=== PATIENT | female | born 1950 | race Caucasian/White ===

== ENCOUNTER → 2020-08-09 | Outpatient (CLI) | payer MEDICARE, OTHER ==
[~2020-08-09] MED LIST: ADVAIR 100-501 EACH INH; ALBUTEROL2.5 MG/3 M INH; ALTACE10 MG PO; ASPIRIN EC81 MG PO; BENADRYL 25MG C25 MG PO; BUMETANIDE1 MG PO; BUMEX 1MG TABLET1 MG PO; CEFPODOXIME PR200 MG PO; CEFUROXIME500 MG PO; COREG3.125 MG PO; COREG6.25 MG PO; CRESTOR10 MG PO; DEX4 GLUCOSE4 GM PO; DILT-XR180 MG PO; DILTIAZEM 24HR120 M1 PO; DOXYCYCLINE HY100 MG PO; DRISDOL50000 UNIT PO; ECOTRIN81 MG PO; ELAVIL 25 MG TA25 MG PO; FERROUS GLUCON324 M1 PO; FERROUS SULFAT325 M2 PO; FOLIC ACID 1 MG1 MG PO; FOSAMAX70 MG PO; GLUCOPHAGE 500500 MG PO; GLUCOTROL XL2.5 MG PO; INCRUSE ELLI62.5 MCG INH; IPRAT-ALBUT 0.5-3 ML INH; IPRAT-ALBUT 0.5-3 ML NEB; IRON325 M1 PO; LASIX20 MG PO; LASIX40 MG PO; LEVAQUIN500 MG PO; MEDROL4 MG PO; MUCINEX600 MG PO; NEURONTIN300 MG PO; NORCO 10-325 T1 EACH PO; NORVASC10 MG PO; OMEPRAZOLE20 MG PO; PLAVIX 75 MG TA75 MG PO; PLETAL 100 MG100 MG PO; PREDNISONE20 MG PO; PROTONIX 40 MG40 M1 PO; TYLENOL W/CODEIN1 E1 PO; VENTOLIN HFA 66.7 GM INH; VITAMIN B-1100 M1 PO; VITAMIN B-650 MG PO; ZANAFLEX 4 MG TA4 MG PO
[2020-08-10 11:12] LABS: CREATININE, URINE 67.9 mg/dL (Not Estab.)
== END ==
LOC: US 08-01 11:00
PROVIDERS: Internal Medicine Nephrology
DX: N18.9 Chronic kidney disease, unspecified (principal)
CPT/HCPCS: 36415; 80053; 81001; 82043; 82570; 84156

== ENCOUNTER 2021-02-10 04:36 | Inpatient (IN) | payer MEDICARE, OTHER ==
[~2021-02-10] VITALS: Ht 160 cm; Wt 47.5 kg
[~2021-02-10 04:36] MED LIST changes: -ASPIRIN EC81 MG PO; -DEX4 GLUCOSE4 GM PO; -DILTIAZEM 24HR120 M1 PO; -DOXYCYCLINE HY100 MG PO; -FERROUS GLUCON324 M1 PO; -IPRAT-ALBUT 0.5-3 ML INH; -PREDNISONE20 MG PO; -PROTONIX 40 MG40 M1 PO
[2021-02-10 04:51] LABS: HEMOGLOBIN 7.5 gm/dl (12.3-15.3); RED BLOOD COUNT 3.5 M/UL (4.00-5.10); WHITE BLOOD COUNT 11.2 K/UL (4.5-11.0)
[2021-02-10 05:59] LABS: BUN/CREATININE RATIO 18 (0-10)
[2021-02-10] MEDS ORDERED: LASIX40 MG PO (12:53)
[2021-02-10] MEDS ORDERED: FOLIC ACID 1 MG1 MG PO (13:14)
[2021-02-10] MEDS ORDERED: DILTIAZEM 24HR120 M1 PO (13:48)
[2021-02-10 17:25] LABS: HEMOGLOBIN 7.4 gm/dl (12.3-15.3)
[2021-02-11 10:46] LABS: HEMOGLOBIN 8.4 gm/dl (12.3-15.3); RED BLOOD COUNT 3.68 M/UL (4.00-5.10); WHITE BLOOD COUNT 11.5 K/UL (4.5-11.0)
[2021-02-11 11:05] LABS: BUN/CREATININE RATIO 19 (0-10)
[2021-02-11 15:59] LABS: HEMOGLOBIN 8.7 gm/dl (12.3-15.3)
[2021-02-11] MEDS ORDERED: ASPIRIN EC81 MG PO (16:53)
[2021-02-11] MEDS ORDERED: PROTONIX 40 MG40 M1 PO (16:58)
[2021-02-11] MEDS ORDERED: DOXYCYCLINE HY100 MG PO (16:58)
[2021-02-11] MEDS ORDERED: IPRAT-ALBUT 0.5-3 ML INH (16:58)
[2021-02-11] MEDS ORDERED: PREDNISONE20 MG PO (16:58)
[2021-02-11] MEDS ORDERED: FERROUS GLUCON324 M1 PO (16:58)
[2021-02-11] MEDS ORDERED: DEX4 GLUCOSE4 GM PO (17:21)
== END 2021-02-11 18:13 | disposition home or self-care (01) | DRG 189 ==
LOC: ER1 04:36 → PROG CARE 06:46 → CDU 06:46 → PROG CARE 20:30
PROVIDERS: Internal Medicine; Physician Assistant; ADMIT Internal Medicine
PROC: 5A09357 Assistance with Respiratory Ventilation, Less than 24 Consecutive Hours, Continuous Positive Airway Pressure (ICD-10-PCS; principal; 2021-02-10)
DX: J96.21 Acute and chronic respiratory failure with hypoxia (principal); E43 Unspecified severe protein-calorie malnutrition; J44.1 Chronic obstructive pulmonary disease with (acute) exacerbation; Z20.822 Contact with and (suspected) exposure to COVID-19; Z66 Do not resuscitate; E87.1 Hypo-osmolality and hyponatremia; I50.42 Chronic combined systolic (congestive) and diastolic (congestive) heart failure; Z68.1 Body mass index [BMI] 19.9 or less, adult; J96.22 Acute and chronic respiratory failure with hypercapnia; J20.9 Acute bronchitis, unspecified; F17.200 Nicotine dependence, unspecified, uncomplicated; D50.9 Iron deficiency anemia, unspecified; E78.5 Hyperlipidemia, unspecified; E11.40 Type 2 diabetes mellitus with diabetic neuropathy, unspecified; I25.10 Atherosclerotic heart disease of native coronary artery without angina pectoris; M06.9 Rheumatoid arthritis, unspecified; I73.9 Peripheral vascular disease, unspecified; I11.0 Hypertensive heart disease with heart failure; D64.89 Other specified anemias; Z96.661 Presence of right artificial ankle joint; Z95.1 Presence of aortocoronary bypass graft; Z71.3 Dietary counseling and surveillance; Z91.14 Patient's other noncompliance with medication regimen; Z88.0 Allergy status to penicillin; Z88.8 Allergy status to other drugs, medicaments and biological substances
CPT/HCPCS: 0240U; 36415; 36430; 36600; 71045; 71046; 80048; 80053; 81001; 82550; 82553; 82803; 82962; 83540; 83550; 83605; 83874; 83880; 84484; 85014; 85018; 85025; 85027; 86140; 86850; 86900; 86901; 86920; 87040; 87077; 87086; 87186; 93005; 94640; 94644; 94660; 94664; 94760; 96374; 99285; C9113; J1100; J2920; J7030; P9016

== ENCOUNTER 2021-08-11 10:49 | Inpatient (IN) | payer MEDICARE, OTHER ==
[~2021-08-11] VITALS: Ht 165.1 cm; Wt 47.6 kg
[~2021-08-11 10:49] MED LIST changes: +ASPIRIN EC81 MG PO; +DEX4 GLUCOSE4 GM PO; +DILTIAZEM 24HR120 M1 PO; +DOXYCYCLINE HY100 MG PO; +FERROUS GLUCON324 M1 PO; +IPRAT-ALBUT 0.5-3 ML INH; +PREDNISONE20 MG PO; +PROTONIX 40 MG40 M1 PO
[2021-08-11 11:34] LABS: HEMOGLOBIN 7.5 gm/dl (12.3-15.3); RED BLOOD COUNT 2.96 M/UL (4.00-5.10); WHITE BLOOD COUNT 7.9 K/UL (4.5-11.0)
[2021-08-11] MEDS ORDERED: PROTONIX 40 MG40 M1 PO (14:46)
[2021-08-11] MEDS ORDERED: PREDNISONE10 MG PO (14:47)
[2021-08-11] MEDS ORDERED: CETIRIZINE HCL10 MG PO (14:49)
[2021-08-11] MEDS ORDERED: AZITHROMYCIN250 MG PO (14:49)
[2021-08-11] MEDS ORDERED: CYANOCOBAL1000 MCG/1 INJ (14:50)
[2021-08-11] MEDS ORDERED: SYMBICORT 80-10.2 GM INH (14:51)
[2021-08-12 04:21] LABS: HEMOGLOBIN 7.2 gm/dl (12.3-15.3); RED BLOOD COUNT 2.8 M/UL (4.00-5.10)
[2021-08-12 04:23] LABS: WHITE BLOOD COUNT 5.2 K/UL (4.5-11.0)
[2021-08-12 08:09] LABS: HEMOGLOBIN 7.1 gm/dl (12.3-15.3)
[2021-08-12 16:00] LABS: HEMOGLOBIN 8.6 gm/dl (12.3-15.3)
[2021-08-13 04:25] LABS: HEMOGLOBIN 7.7 gm/dl (12.3-15.3)
[2021-08-13 04:28] LABS: WHITE BLOOD COUNT 3.7 K/UL (4.5-11.0)
--- NOTE | 2021-08-13 10:42 | NUR ---
PATIENT IS REFUSING TO WEAR THE BIPAP. DR. VIEIRA AWARE.
[2021-08-14 05:13] LABS: HEMOGLOBIN 8.2 gm/dl (12.3-15.3)
[2021-08-14 05:16] LABS: RED BLOOD COUNT 3.33 M/UL (4.00-5.10); WHITE BLOOD COUNT 6.7 K/UL (4.5-11.0)
--- NOTE | 2021-08-14 14:57 | NUR ---
I HAVE CONTINUOUSLY ADVISED THE PATIENT TO WEAR HER BIPAP AND EDUCATED ON THE IMPORTANCE OF WEARING THE BIPAP AND SHE STILL REFUSES TO WEAR IT.
[2021-08-15 06:25] LABS: HEMOGLOBIN 8.3 gm/dl (12.3-15.3); RED BLOOD COUNT 3.17 M/UL (4.00-5.10)
[2021-08-15 06:28] LABS: WHITE BLOOD COUNT 9.5 K/UL (4.5-11.0)
[2021-08-15 18:08] LABS: ORGANISM ID Not indicated. (.); SPECIMEN SOURCE Urine (.); STREPTOCOCCUS PNEUMONIAE AG Positive (Negative)
[2021-08-16 07:43] LABS: HEMOGLOBIN 7.7 gm/dl (12.3-15.3); RED BLOOD COUNT 3.09 M/UL (4.00-5.10); WHITE BLOOD COUNT 10.2 K/UL (4.5-11.0)
--- NOTE | 2021-08-17 00:57 | NUR ---
AT APPROXIMATELY 2230 ON 08/16/20, WHILE TECH WAS OBTAINING 2200 VS, PT WAS UPSET THAT IT WAS NOT TIME FOR A BREATHING TREATMENT AND PT REFUSED TO ALLOW STAFF TO CHECK AND CHANGE BRIEF. WILL ATTEMPT AGAIN AT LATER POINT IN SHIFT WHEN PT IS MORE CALM. WCTM
[2021-08-17 06:59] LABS: HEMOGLOBIN 7.4 gm/dl (12.3-15.3); RED BLOOD COUNT 2.98 M/UL (4.00-5.10); WHITE BLOOD COUNT 8.7 K/UL (4.5-11.0)
[2021-08-18 09:03] LABS: HEMOGLOBIN 7.3 gm/dl (12.3-15.3); RED BLOOD COUNT 2.89 M/UL (4.00-5.10); WHITE BLOOD COUNT 9.4 K/UL (4.5-11.0)
[2021-08-18] MEDS ORDERED: LOKELMA5 GM PO (15:17)
[2021-08-18] MEDS ORDERED: FERROUS GLUCON324 M1 PO (15:17)
[2021-08-18] MEDS ORDERED: CEFUROXIME500 MG PO (15:17)
[2021-08-18] MEDS ORDERED: MEDROL DOSEPAK 24 MG PO (15:17)
[2021-08-18] MEDS ORDERED: DILTIAZEM 24HR240 M1 PO (15:17)
[2021-08-18] MEDS ORDERED: LOPRESSOR 50 MG50 MG PO (15:17)
== END 2021-08-18 17:52 | disposition home or self-care (01) | DRG 193 ==
LOC: ER1 10:49 → CDU 14:25 → M/S 14:25 → CCU 20:59 → M/S 08-14 16:40
PROVIDERS: Internal Medicine; Internal Medicine Critical Care Medicine; Physician Assistant; Physician Assistant Medical; ADMIT Internal Medicine
PROC: 5A09357 Assistance with Respiratory Ventilation, Less than 24 Consecutive Hours, Continuous Positive Airway Pressure (ICD-10-PCS; 2021-08-11)
PROC: 30233N1 Transfusion of Nonautologous Red Blood Cells into Peripheral Vein, Percutaneous Approach (ICD-10-PCS; principal; 2021-08-12)
PROC: B24BZZZ Ultrasonography of Heart with Aorta (ICD-10-PCS; 2021-08-15)
PROC: 5A0945A Assistance with Respiratory Ventilation, 24-96 Consecutive Hours, High Flow/Velocity Cannula (ICD-10-PCS; 2021-08-15)
DX: J10.1 Influenza due to other identified influenza virus with other respiratory manifestations (principal); J96.22 Acute and chronic respiratory failure with hypercapnia; J96.21 Acute and chronic respiratory failure with hypoxia; G93.41 Metabolic encephalopathy; Z66 Do not resuscitate; Z20.822 Contact with and (suspected) exposure to COVID-19; N17.9 Acute kidney failure, unspecified; D62 Acute posthemorrhagic anemia; E87.2 Acidosis; I13.0 Hypertensive heart and chronic kidney disease with heart failure and stage 1 through stage 4 chronic kidney disease, or unspecified chronic kidney disease; I50.32 Chronic diastolic (congestive) heart failure; E87.1 Hypo-osmolality and hyponatremia; G93.49 Other encephalopathy; J15.4 Pneumonia due to other streptococci; I48.0 Paroxysmal atrial fibrillation; I08.1 Rheumatic disorders of both mitral and tricuspid valves; I27.20 Pulmonary hypertension, unspecified; F17.210 Nicotine dependence, cigarettes, uncomplicated; N18.30 Chronic kidney disease, stage 3 unspecified; E87.5 Hyperkalemia; J43.9 Emphysema, unspecified; D50.9 Iron deficiency anemia, unspecified; R73.9 Hyperglycemia, unspecified; G62.9 Polyneuropathy, unspecified; I48.91 Unspecified atrial fibrillation; Z96.698 Presence of other orthopedic joint implants; I25.10 Atherosclerotic heart disease of native coronary artery without angina pectoris; Z95.1 Presence of aortocoronary bypass graft; Z79.01 Long term (current) use of anticoagulants; Z51.5 Encounter for palliative care; Z99.81 Dependence on supplemental oxygen; Z88.0 Allergy status to penicillin; Z88.8 Allergy status to other drugs, medicaments and biological substances; Z82.49 Family history of ischemic heart disease and other diseases of the circulatory system
CPT/HCPCS: ECHO; 0240U; 36415; 36600; 51702; 70450; 71045; 80048; 80053; 80202; 81001; 82272; 82436; 82550; 82553; 82803; 82962; 83540; 83550; 83605; 83735; 84132; 84133; 84300; 84439; 84443; 84484; 85014; 85018; 85025; 85027; 86850; 86900; 86901; 86920; 87040; 87045; 87046; 87070; 87081; 87086; 87205; 87278; 87899; 92610; 93005; 93306; 94640; 94660; 94664; 94760; 96374; 96375; 97110-GP-CQ; 97161; 97530-GP-CQ; 99285; C9113; J0456; J0696; J1644; J1940; J1956; J2060; J2930; J3370; J7030; J7050; J7070; P9016